=== PATIENT | male | born 1970 | race African-American/Black ===

== ENCOUNTER 2018-05-04 22:15 | Emergency (ER) | payer BC ==
[~2018-05-04] VITALS: Ht 190.5 cm; Wt 118.0 kg
[~2018-05-04 22:15] MED LIST: LOSA25TA12 PO
[2018-05-04 22:42] VITALS: BP 174/70
== END 2018-05-05 00:47 | disposition home or self-care (01) ==
LOC: ER 05-05 00:40
DX: G40.909 Epilepsy, unspecified, not intractable, without status epilepticus (principal); E11.9 Type 2 diabetes mellitus without complications; F32.9 Major depressive disorder, single episode, unspecified; I10 Essential (primary) hypertension; Z79.84 Long term (current) use of oral hypoglycemic drugs; Z90.89 Acquired absence of other organs
CPT/HCPCS: 93005; 99283

== ENCOUNTER 2024-04-16 22:14 | Emergency (ER) | payer BC ==
[~2024-04-16] VITALS: Ht 193 cm; Wt 113.0 kg
[~2024-04-16 22:14] MED LIST changes: -LOSA25TA12 PO; +LOSA25TA26 PO
[2024-04-16 22:27] VITALS: O2SAT 100
[2024-04-17] MEDS: HYDROCODONE/ACETAMINOPHEN 5/325MG TABLET PO ONE (00:40)
[2024-04-17] MEDS: ONDANSETRON HCL 4MG/2ML INJ IV STA (03:00)
[2024-04-17] MEDS: MORPHINE SULFATE 4 MG/ML INJ (FOR IV/IM USE) IV STA (03:00)
[2024-04-17 03:12] LABS: CHLORIDE 102 mEq/L (98-107); POTASSIUM 3.4 mEq/L (3.5-5.1); SODIUM 141 mEq/L (136-145)
[2024-04-17 03:13] LABS: CARBON DIOXIDE 33 mEq/L (21-32)
[2024-04-17 03:18] LABS: CREATININE 0.9 mg/dL (0.6-1.3); GLUCOSE 136 mg/dL (70-105); UREA NITROGEN BLOOD 11 mg/dL (9-23)
[2024-04-17 04:17] LABS: BASOPHILS % 0.5 % (0.0-2.0); EOSINOPHILS % 0.3 % (0.0-5.0); HEMATOCRIT. 46.1 % (42.0-52.0); HEMOGLOBIN. 15.3 g/dL (14.0-18.0); LYMPHOCYTES % 15.3 % (20.0-50.0); MEAN CORPUSCULAR HEMOGLOBIN 28.5 pg (28.0-32.0); MEAN CORPUSCULAR HGB CONC 33.3 g/dL (31.0-37.0); MEAN CORPUSCULAR VOLUME 85.5 fL (80.0-94.0); MEAN PLATELET VOLUME 9.3 fl (7.4-10.4); MONOCYTES % 6.7 % (2.0-8.0); NEUTROPHILS % 77.2 % (40.0-76.0); PLATELET 230 x1000/uL (130-400); RED BLOOD CELL COUNT 5.39 mill/uL (4.7-6.1); RED CELL DISTRIBUTION WIDTH 15.4 % (11.6-14.6); WHITE BLOOD COUNT 13.8 x1000/uL (4.5-11.0)
[2024-04-17] MEDS ORDERED: T3 PO (05:01)
[2024-04-17] MEDS ORDERED: CYCL10TA21 MT (05:01)
[2024-04-17 05:20] VITALS: BP 128/88; PULSE 93; RESP 18; TEMP 36.89184; O2SAT 100
== END 2024-04-17 05:30 | disposition home or self-care (01) ==
LOC: ER 22:14
DX: G40.909 Epilepsy, unspecified, not intractable, without status epilepticus (principal); G89.29 Other chronic pain; M54.9 Dorsalgia, unspecified; Z79.899 Other long term (current) drug therapy
CPT/HCPCS: 99285; 70450; 36415; 96374; 96375; 80048; 85025; J2405; J2270